=== PATIENT | male | born 1975 | race Caucasian/White ===

== ENCOUNTER 2024-05-11 00:02 | Emergency (ER) | payer OTHER ==
[~2024-05-11] VITALS: Ht 193 cm; Wt 84.0 kg
[2024-05-11] MEDS ORDERED: AMOXICILLIN/CLAVULANATE K 875 MG HOME.PACK PO ONE (02:45)
[2024-05-11] MEDS ORDERED: AMOX TR-K CLV1 EAC1 PO (02:45)
[2024-05-11 03:05] VITALS: BP 116/86
== END 2024-05-11 03:05 | disposition home or self-care (01) ==
LOC: ED 00:02
DX: K04.7 Periapical abscess without sinus (principal); Z88.5 Allergy status to narcotic agent
CPT/HCPCS: 99282